=== PATIENT | female | born 1990 | race Caucasian/White ===

== ENCOUNTER 2019-05-27 08:25 | Inpatient (IN) | payer OTHER ==
[2019-05-27] MEDS ORDERED: BUTORPHANOL TARTRATE 1 MG/ML VIAL IVPB PRN (09:38)
[2019-05-27] MEDS ORDERED: OXYTOCIN 30 UNITS in 0.9% NS 30 UNIT/500 ML INFUS.BAG IVPB SCH (09:45)
[2019-05-27] MEDS ORDERED: ELECTROLYTE-148 SOLN 1,000 ML IV SCH (09:45)
--- NOTE | 2019-05-27 09:45 | HP ---
Past Medical History - Admission Chief Complaint: SROM 5:30 History of Present Illness: 28yo @ 41.0wks by SONIYA farooq 05/20/2019 here with SROM at 5:30AM. No ctx. +FM. No VB PNC @ [address]; transfer of care at 36 weeks Preg c/b: elevated GTT, normal 3hr GTT History Source: Patient Limitations to Obtaining History: Language Barrier - Past Medical History MANAGER OF OPERATIONS: No: Alzheimer's, CVA, Dementia, Migraine, Multiple Sclerosis, Peripheral Neuropathy, Parkinson's, Seizure, Syncope, TIA, Vertigo, Other Cardiovascular: No: AFIB, Aneurysm, Aortic Insufficiency, Aortic Stenosis, CAD, CHF, Deep Vein Thrombosis, HTN, Hyperlipdemia, NE, Mitral Insufficiency, Mitral Stenosis, Murmur, Pulmonary Hypertension, Other Pulmonary: No: Asthma, Bronchitis, Cancer, COPD, O2 Dependent, Pneumonia, Previously Intubated, Pulmonary Embolus, Pulmonary Fibrosis, Sleep Apnea, Other Hepatobiliary: No: Cirrhosis, Cholelithiasis, Cholecystitis, Choledocholithiasis , Hepatitis A, Hepatitis B, Hepatitis C, Other Renal/: No: Renal Failure, Renal Inusuff, BPH, Cancer, Hematuria, Hemodialysis , Neurogenic Bladder, Renal Calculi, UTI, Other Reproductive: No: Ectopic , Endometriosis, Fibroids, PID, Polycystic Ovary Syndrome, Postmenopausal, Other ...: 2 ...Para: 0 ...Term: 0 ...: 0 ...Spon : 1 ... Weeks Gestation by Dates: 41.0 ...EDC by Jamari: 05/20/19 Heme/Onc: No: Anemia, B12 Deficiency, Bleeding Disorder, Cancer, Current Chemotherapy, Current Radiation Therapy, Hemochromatosis, Hypercoaguable State, Myeloproliferative Synd, Sickle Cell Disease, Sickle Cell Trait, Thrombocytopenia, Other Infectious Disease: No: AIDS, C-Diff, Herpes Zoster, HIV, MRSA, STD's, Tuberculosis, VREF, Other Psych: No: Addictions, Anxiety, Bipolar, Depression, Panic, Psychosis, Schizophrenia, Other Musculoskeletal: No: Bursitis, Chronic low back pain, Hemiparesis, Hemiplegia, Osteoarthritis, Paraplegia, Other Rheumatology: No: Fibromyalgia, Gout, Lupus, Rheumatoid Arthritis, Sarcoidosis, Vasculitis, Other ENT: No: Allergic Rhinitis, Sinusitis, Other Endocrine: No: Pelon's Disease, [place]'s Disease, Diabetes Insipidus, Diabetes Mellitus, Hyperparathyroidism, Hyperthyroidism, Hypothyroidism, Osteopenia, SIADH, Other - Past Surgical History Past Surgical History: Yes: None Hx Myomectomy: No Hx Transabdominal Cerclage: No - Alcohol/Substance Use Hx Alcohol Use: No History of Substance Use: reports: None - Social History Usual Living Arrangement: Yes: With Significant Other Do you think of yourself as: Straight/Heterosexual ADL: Independent Home Medications - Allergies Allergies/Adverse Reactions: Allergies Allergy/AdvReac Type Severity Reaction Status Date / Time aspirin Allergy Intermediate Swelling Verified 05/27/19 09:34 ibuprofen Allergy Intermediate Swelling Verified 05/27/19 09:34 - Home Medications Home Medications: Ambulatory Orders Pnv No.95/Ferrous Fum/Folic AC [ Vitamin Tablet] 1 each PO DAILY Physical Exam - Maternity - Abdominal Exam/OB Number of Fetuses: Single Presentation: Vertex Contractions: Yes Regularity: Irregular Intensity: Unaware Monitor Mode: External Heart Rate Location: [facility] Category: I Accelerations: Non-Uniform Decelerations: None - Vaginal Exam/OB Vaginal Bleediing: No Speculum Exam: No Dilatation (cm): 1 Effacement (%): 0 Amniotic Membrane Status: Ruptured Nitrazine Test: Positive Amniotic Fluid: Yes: Clear Presentation: Vertex/Position Station: -3 - Physical Exam Edema: No Problem List - Problems (1) PROM (premature rupture of membranes) Code(s): O42.90 - LYLA ROM, 7TH0 BETW RUPT & ONST LABR, UNSP WEEKS OF GEST Assessment/Plan 28yo @ 41.0wks here with PROM Admit to L&D IVFs, clear fluids Pitocin IOL Cat I tracing Stadol/epidural prn Anticipate eventual Keyonna Carias MD
[2019-05-27 10:04] VITALS: BMI 27.1
[2019-05-27] MEDS ORDERED: PROMETHAZINE HCL 25 MG/1 ML VIAL ONE (10:13)
[2019-05-27 10:43] LABS: BASO % 0.6 % (0-2.0); EOS % 0.4 % (0-4.5); HEMATOCRIT 36.3 % (32.4-45.2); HEMOGLOBIN 12.2 GM/dL (10.7-15.3); MCH 30.7 pg (25.7-33.7); MCHC 33.5 g/dl (32.0-36.0); MEAN CELL VOLUME 91.9 fl (80-96); MEAN PLT VOLUME 11.5 fl (7.5-11.1); MONO % 6.1 % (3.8-10.2); NEUT % 69.9 % (42.8-82.8); PLATELET COUNT 136 K/MM3 (134-434); RBC 3.95 M/mm3 (3.60-5.2); RDW 14.9 % (11.6-15.6); WHITE BLOOD COUNT 11.5 K/mm3 (4.0-10.0)
[2019-05-27 10:56] LABS: INR 0.9 (0.83-1.09); PROTHROMBIN TIME (PATIENT) 10.6 SEC (9.7-13.0)
[2019-05-27 10:59] LABS: ACTIVATED PTT 30.3 SECONDS (25.2-36.5)
[2019-05-27 11:06] LABS: BLOOD UREA NITROGEN 9.4 mg/dL (7-18); CALCIUM 8.8 mg/dL (8.5-10.1); CREATININE 0.6 mg/dL (0.55-1.3); POTASSIUM 4.7 mmol/L (3.5-5.1)
--- NOTE | 2019-05-27 13:41 | PN ---
Progress Note, Labor Vaginal Exam #2 Labor Exam Date: 05/27/19 Labor Exam Time: 13:38 Heart Rate (range): Cat I Dilatation: 1 Effacement (%): 0 Amniotic Membrane Status: Ruptured Presentation: Vertex/Position Station: -3 Remarks: Pt comfortable head not well appreciated, bedside sono confirms vertex. Full bladder Will continue pitocin, if no cervical change in 12 hours, patient wants to proceed with PLTCS Will cont to pitocin Epidural prn Keyonna Carias MD
[2019-05-27] MEDS ORDERED: CITRIC ACID/SODIUM CITRATE 30 ML UNIT-DOSE CUP PO ONE (15:15)
--- NOTE | 2019-05-27 15:15 | PN ---
Progress Note, Labor Vaginal Exam #2 Labor Exam Date: 05/27/19 Labor Exam Time: 15:14 Heart Rate (range): Cat I Dilatation: 1 Effacement (%): 0 Amniotic Membrane Status: Ruptured Presentation: Vertex/Position Station: -3 Remarks: Pt uncomfortable Discussed epidural for pain and is requesting an elective PLTCS Declined epidural and reassessment after epidural Will discontinue pitocin and proceed with elective PLTCS per pt request and refusal to continue with IOL
[2019-05-27] MEDS ORDERED: OXYTOCIN 20 UNITS in 0.9% NS 20 UNIT/1,000 ML INFUS.BAG IV ONE (15:38)
[2019-05-27] MEDS ORDERED: morphine SULFATE/PF 0.5 MG/ML (2cc Syringe - QUVA) ONE (15:40)
[2019-05-27] MEDS ORDERED: PHENYLEPHRINE HCL 10 MG/1 ML SINGLE DOSE VIAL ONE (16:01)
[2019-05-27] MEDS ORDERED: MIDAZOLAM HCL 2 MG/2 ML SINGLE DOSE VIAL ONE (16:29)
[2019-05-27] MEDS ORDERED: ONDANSETRON 4 MG/2 ML VIAL IVPUSH PRN (16:40)
[2019-05-27] MEDS ORDERED: oxyCODONE HCL 5 MG TABLET PO PRN (16:57)
[2019-05-27] MEDS ORDERED: METHYLERGONOVINE MALEATE 0.2 MG/1 ML AMP IM PRN ×2 (16:57→17:13)
[2019-05-27] MEDS ORDERED: IBUPROFEN 600 MG TABLET (FP) PO PRN (16:57)
[2019-05-27] MEDS ORDERED: BENZOCAINE 20% 57 GM BOTTLE TP PRN (16:57)
[2019-05-27] MEDS ORDERED: BENZOCAINE 28 GM HEMORRHOIDAL OINTMENT TP PRN (16:57)
[2019-05-27] MEDS ORDERED: SIMETHICONE 80 MG TAB.CHEW (FP) PO PRN (16:57)
[2019-05-27] MEDS ORDERED: WITCH HAZEL 50% (TUCKS) 40 PAD/JAR PAD TP PRN (16:57)
[2019-05-27] MEDS ORDERED: IBUPROFEN 800 MG/8 ML IJ IVPB PRN (16:57)
[2019-05-27] MEDS ORDERED: ACETAMINOPHEN 325 MG TABLET (FP) PO PRN (16:57)
--- NOTE | 2019-05-27 16:57 | OP ---
Operative Note - Note: Operative Date: 05/27/19 Pre-Operative Diagnosis: 41 week , PPROM, desires elective PLTCS Operation: Primary Low Transverse Findings: VMI, ALEXIS position, nuchal and body cord, no meconium. Apgars 9/9, Weight 8.4lbs , Normal tubes and ovaries bilaterally Post-Operative Diagnosis: Same as Pre-op Surgeon: Anastasia Carias Brazing Machine Feeder: Derek Palacios Anesthesia: Spinal Estimated Blood Loss (mls): 500 Drains, Volume Out (mls): 300 (clear urine) Operative Report Dictated: Yes
[2019-05-27] MEDS ORDERED: OXYTOCIN 20 UNITS in 0.9% NS 20 UNIT/1,000 ML INFUS.BAG IV SCH (17:00)
[2019-05-27] MEDS ORDERED: SENNOSIDES/DOCUSATE COMBO (SENNA PLUS) TABLET (UD) PO PRN (17:13)
[2019-05-27] MEDS ORDERED: ACETAMINOPHEN 1000 MG/100 ML VIAL (NON FORMULARY) IVPB PRN (17:29)
[2019-05-27] MEDS ORDERED: ACETAMINOPHEN INJECTION 100 ML IVPB ONE (17:33)
[2019-05-27] MEDS: OXYTOCIN 20 UNITS in 0.9% NS 20 UNIT/1,000 ML INFUS.BAG IV SCH ×2 (17:40→23:41)
--- NOTE | 2019-05-27 17:52 | OP ---
DATE OF OPERATION: 05/27/2019 PREOPERATIVE DIAGNOSIS: A 41-week , premature rupture of membranes, desires elective primary section. POSTOPERATIVE DIAGNOSIS: A 41-week , premature rupture of membranes, desires elective primary section. PROCEDURE: Primary low transverse section. ANESTHESIA: Spinal. INTRAVENOUS FLUIDS: 1500. ESTIMATED BLOOD LOSS: 500. URINE OUTPUT: 300 mL of clear urine at the end of the procedure. FINDINGS: Viable male infant, ALEXIS position. Nuchal and body cord x1. No meconium. Weight 8 pounds 4 ounces. Apgars 9, 9. Normal tubes and ovaries bilaterally. SURGEON: Anastasia Carias MD OPERATIONS EXPERT: IRENE Francis COMPLICATIONS: None. CONDITION: Stable to recovery room. NATURE OF THE PROCEDURE: After the appropriate consents were signed, patient was taken to the operating room. Spinal anesthesia was administered. Lewis catheter was then inserted prior to entry into the operating room. The abdomen was prepped and draped in a normal sterile fashion. A time-out was performed confirming correct patient and procedure. Anesthesia was confirmed. A Pfannenstiel incision was made through the skin, carried through to the underlying layer until the fascia was nicked in the midline. The fascia was then extended laterally with the Brooks scissors. The inferior aspect of the fascia was grasped with the Asmita clamps, tented upwards, and the rectus muscle was dissected off bluntly and with the Brooks scissors. Attention was then paid to the superior aspect, which was taken down in a similar fashion. The rectus muscles were bluntly in the midline. The peritoneum was entered bluntly. A bladder blade was then inserted. The bladder reflection was then made once the uterine serosa was nicked in the midline, extended laterally with the Metzenbaum scissors. The bladder flap was then created digitally. The bladder blade was then re-inserted. The uterus was incised in a low transverse fashion. Clear amniotic fluid was noted. Infant's head was delivered without difficulty as were the remaining shoulder and body. The nuchal and body cord were reduced upon delivery of the infant. The cord was clamped and cut. The was handed off to the awaiting pediatric staff. The placenta was then removed manually. The uterus was cleared of all clot and debris. The hysterotomy was closed in a single layer with a 1-0 Vicryl and noted to be hemostatic. The adnexa were inspected and noted to be normal. The gutters were cleared of all clot and debris. The hysterotomy was re-examined, noted to be normal. The rectus muscles were then reapproximated with a 2-0 chromic. The fascia was closed with a 0 Vicryl. The skin was closed with a 3-0 Biosyn. Bandages were placed. All sponge, lap, needle counts were correct x3. The patient did receive Ancef at the start of the procedure. She was taken from the operating room to the recovery area in stable condition. MD SASKIA FAIR/[id number]
[2019-05-27] MEDS ORDERED: oxyCODONE HCL 5 MG TABLET ONE (18:25)
[2019-05-27] MEDS: oxyCODONE HCL 5 MG TABLET PO PRN (18:27)
[2019-05-27] MEDS ORDERED: FERROUS SO4 325 MG TABLET (FP) PO SCH (22:00)
[2019-05-27] MEDS: FERROUS SO4 325 MG TABLET (FP) PO SCH (22:26)
[2019-05-28] MEDS: OXYTOCIN 20 UNITS in 0.9% NS 20 UNIT/1,000 ML INFUS.BAG IV SCH (06:07)
[2019-05-28 09:16] LABS: BASO % 0.7 % (0-2.0); EOS % 0.3 % (0-4.5); HEMATOCRIT 29.4 % (32.4-45.2); HEMOGLOBIN 9.9 GM/dL (10.7-15.3); LYMPH % 14.3 % (8-40); MCH 31.1 pg (25.7-33.7); MCHC 33.7 g/dl (32.0-36.0); MEAN CELL VOLUME 92.4 fl (80-96); MEAN PLT VOLUME 11.5 fl (7.5-11.1); NEUT % 79.7 % (42.8-82.8); PLATELET COUNT 92 K/MM3 (134-434); RBC 3.18 M/mm3 (3.60-5.2); RDW 14.6 % (11.6-15.6); WHITE BLOOD COUNT 12.2 K/mm3 (4.0-10.0)
[2019-05-28] MEDS ORDERED: PRENATAL VITAMINS W/ FOLIC ACID TABLET (FP) PO SCH (10:00)
[2019-05-28] MEDS: PRENATAL VITAMINS W/ FOLIC ACID TABLET (FP) PO SCH (10:44)
[2019-05-28] MEDS: FERROUS SO4 325 MG TABLET (FP) PO SCH ×2 (10:44→22:05)
--- NOTE | 2019-05-28 14:13 | PN ---
Post Progress Note - Subjective Subjective: Pain moderately controlled. Little ambulation. No fevers/chills. Type of Delivery: Primary C/S Vital Signs: Vital Signs Temperature 98.4 F 05/28/19 10:00 Pulse Rate 84 05/28/19 10:00 Respiratory Rate 18 05/28/19 13:00 Blood Pressure 127/79 05/28/19 10:00 O2 Sat by Pulse Oximetry (%) 99 05/27/19 17:45 Breast Exam: Yes: Soft Uterus: Yes: Fundus below umbilicus Incision: Yes: Dressing dry and intact, Sutures intact Abdomen/GI: Yes: Abdomen soft Lochia: Yes: Rubra Lochia, amount: Small Extremities: Yes: Calves non-tender Perineum: Yes: Intact Activity: Ambulating - Labs Labs: CBC WBC 12.2 K/mm3 (4.0-10.0) H 05/28/19 08:28 RBC 3.18 M/mm3 (3.60-5.2) L 05/28/19 08:28 Hgb 9.9 GM/dL (10.7-15.3) L 05/28/19 08:28 Hct 29.4 % (32.4-45.2) L D 05/28/19 08:28 MCV 92.4 fl (80-96) 05/28/19 08:28 MCH 31.1 pg (25.7-33.7) 05/28/19 08:28 MCHC 33.7 g/dl (32.0-36.0) 05/28/19 08:28 RDW 14.6 % (11.6-15.6) 05/28/19 08:28 Plt Count 92 K/MM3 (134-434) L D 05/28/19 08:28 MPV 11.5 fl (7.5-11.1) H 05/28/19 08:28 Absolute Neuts (auto) 9.7 K/mm3 (1.5-8.0) H 05/28/19 08:28 Neutrophils % 79.7 % (42.8-82.8) 05/28/19 08:28 Lymphocytes % 14.3 % (8-40) D 05/28/19 08:28 Monocytes % 5.0 % (3.8-10.2) 05/28/19 08:28 Eosinophils % 0.3 % (0-4.5) 05/28/19 08:28 Basophils % 0.7 % (0-2.0) 05/28/19 08:28 Nucleated RBC % 0 % (0-0) 05/28/19 08:28 Problem List - Problems (1) PROM (premature rupture of membranes) Code(s): O42.90 - LYLA ROM, 7TH0 BETW RUPT & ONST LABR, UNSP WEEKS OF GEST Assessment/Plan 28yo s/p elective PLTCS, POD#1 Routine PP care Labs reviewed, normal PO pain control OOB, ambulate D/C to home by POD#4 Keyonna Carias MD
[2019-05-28] MEDS ORDERED: BISACODYL 10 MG SUPP.RECT RC PRN ×2 (16:57→17:13)
[2019-05-28] MEDS: ACETAMINOPHEN 325 MG TABLET (FP) PO PRN (19:28)
[2019-05-29] MEDS: SIMETHICONE 80 MG TAB.CHEW (FP) PO PRN ×4 (08:33→22:28)
[2019-05-29] MEDS: ACETAMINOPHEN 325 MG TABLET (FP) PO PRN ×4 (08:33→22:29)
[2019-05-29] MEDS: oxyCODONE HCL 5 MG TABLET PO PRN ×4 (08:34→22:29)
--- NOTE | 2019-05-29 09:09 | PN ---
Post Progress Note - Subjective Subjective: Pain controlled. No fevers/chills. Ambulating. Passing flatus. Tolerating po Type of Delivery: Primary C/S Vital Signs: Vital Signs Temperature 98.0 F 05/28/19 22:00 Pulse Rate 90 05/28/19 22:00 Respiratory Rate 20 05/28/19 22:00 Blood Pressure 133/77 05/28/19 22:00 O2 Sat by Pulse Oximetry (%) 99 05/27/19 17:45 Breast Exam: Yes: Soft Uterus: Yes: Fundus Firm, Fundus below umbilicus Incision: Yes: Dressing dry and intact Lochia: Yes: Rubra Lochia, amount: Small Extremities: Yes: Calves non-tender Perineum: Yes: Intact Activity: Ambulating - Labs Labs: CBC WBC 12.2 K/mm3 (4.0-10.0) H 05/28/19 08:28 RBC 3.18 M/mm3 (3.60-5.2) L 05/28/19 08:28 Hgb 9.9 GM/dL (10.7-15.3) L 05/28/19 08:28 Hct 29.4 % (32.4-45.2) L D 05/28/19 08:28 MCV 92.4 fl (80-96) 05/28/19 08:28 MCH 31.1 pg (25.7-33.7) 05/28/19 08:28 MCHC 33.7 g/dl (32.0-36.0) 05/28/19 08:28 RDW 14.6 % (11.6-15.6) 05/28/19 08:28 Plt Count 92 K/MM3 (134-434) L D 05/28/19 08:28 MPV 11.5 fl (7.5-11.1) H 05/28/19 08:28 Absolute Neuts (auto) 9.7 K/mm3 (1.5-8.0) H 05/28/19 08:28 Neutrophils % 79.7 % (42.8-82.8) 05/28/19 08:28 Lymphocytes % 14.3 % (8-40) D 05/28/19 08:28 Monocytes % 5.0 % (3.8-10.2) 05/28/19 08:28 Eosinophils % 0.3 % (0-4.5) 05/28/19 08:28 Basophils % 0.7 % (0-2.0) 05/28/19 08:28 Nucleated RBC % 0 % (0-0) 05/28/19 08:28 Problem List - Problems (1) PROM (premature rupture of membranes) Code(s): O42.90 - LYLA ROM, 7TH0 BETW RUPT & ONST LABR, UNSP WEEKS OF GEST Assessment/Plan 28yo s/p elective PLTCS, POD#2 Routine PP care Labs reviewed, normal; plts 92 PO pain control OOB, ambulate D/C to home by POD#4 Keyonna Carias MD
[2019-05-29] MEDS: FERROUS SO4 325 MG TABLET (FP) PO SCH ×2 (10:02→23:04)
[2019-05-29] MEDS: PRENATAL VITAMINS W/ FOLIC ACID TABLET (FP) PO SCH (10:02)
[2019-05-29 22:24] VITALS: PULSE 99
[2019-05-30] MEDS: OXYTOCIN 20 UNITS in 0.9% NS 20 UNIT/1,000 ML INFUS.BAG IV SCH (08:31)
[2019-05-30] MEDS: oxyCODONE HCL 5 MG TABLET PO PRN (08:32)
[2019-05-30] MEDS: SIMETHICONE 80 MG TAB.CHEW (FP) PO PRN (08:32)
[2019-05-30] MEDS: ACETAMINOPHEN 325 MG TABLET (FP) PO PRN (08:33)
[2019-05-30 08:44] LABS: BASO % 0.6 % (0-2.0); EOS % 1.3 % (0-4.5); HEMATOCRIT 27.1 % (32.4-45.2); HEMOGLOBIN 9.1 GM/dL (10.7-15.3); LYMPH % 13.6 % (8-40); MCH 30.9 pg (25.7-33.7); MCHC 33.7 g/dl (32.0-36.0); MEAN CELL VOLUME 91.7 fl (80-96); MEAN PLT VOLUME 11.4 fl (7.5-11.1); MONO % 4.9 % (3.8-10.2); NEUT % 79.6 % (42.8-82.8); PLATELET COUNT 156 K/MM3 (134-434); RBC 2.95 M/mm3 (3.60-5.2); RDW 14.8 % (11.6-15.6); WHITE BLOOD COUNT 13.5 K/mm3 (4.0-10.0)
[2019-05-30 09:53] LABS: POC NITRAZINE POS
[2019-05-30] MEDS: PRENATAL VITAMINS W/ FOLIC ACID TABLET (FP) PO SCH (10:05)
[2019-05-30] MEDS: FERROUS SO4 325 MG TABLET (FP) PO SCH (10:05)
[2019-05-30 10:35] VITALS: BP 129/84; TEMP 98.4
--- NOTE | 2019-05-30 11:48 | DS ---
Physical Examination Vital Signs: Vital Signs Temperature 98.4 F 05/30/19 10:00 Pulse Rate 99 H 05/30/19 10:00 Respiratory Rate 18 05/30/19 10:00 Blood Pressure 129/84 05/30/19 10:00 O2 Sat by Pulse Oximetry (%) 99 05/27/19 17:45 Constitutional: Yes: Well Nourished, No Distress, Calm Eyes: Yes: WNL, Conjunctiva Clear, EOM Intact HENT: Yes: WNL, Atraumatic, Normocephalic Neck: Yes: WNL, Supple, Trachea Midline Cardiovascular: Yes: WNL, Regular Rate and Rhythm Respiratory: Yes: WNL, Regular, CTA Bilaterally Gastrointestinal: Yes: WNL, Normal Bowel Sounds Musculoskeletal: Yes: WNL Extremities: Yes: WNL Edema: No Integumentary: Yes: WNL Neurological: Yes: WNL, Alert, Oriented ...Motor Strength: WNL Psychiatric: Yes: WNL Labs: CBC, BMP 05/30/19 07:18 05/27/19 10:10 Discharge Summary Problems reviewed: Yes Reason For Visit: LABOR ADMISSION Current Active Problems PROM (premature rupture of membranes) (Acute) Procedures: Principal: Elective PLTCS Hospital Course: Patient presented at 41weeks with PROM She underwent under 12 hours of pitocin IOL, but then declined to continue further and asked for an elective C/S She had an uncomplicated procedure She met all postoperative milestones She was discharged home on POD#3 Condition: Stable - Instructions Diet, Activity, Other Instructions: Regular Diet Follow up in one week for an incision check Referrals: Anastasia Carias MD [Staff Physician] - Disposition: HOME - Home Medications Comprehensive Discharge Medication List: Ambulatory Orders Pnv No.95/Ferrous Fum/Folic AC [ Vitamin Tablet] 1 each PO DAILY Oxycodone HCl 5 mg PO QID PRN #25 tablet MDD 4 05/30/19
--- NOTE | 2019-06-01 17:09 | PATH ---
Surgical Pathology Report Patient Name: KERA RODRIGUEZ Med. Rec. #: [id number] /Age/Gender: 1990 (Age: 28) / F Account: [id number] Location: [facility] OBS/ARCHIVES SPECIALIST Taken: 05/27/2019 Received: 05/30/2019 Reported: 06/01/2019 Physicians: Anastasia Carias Specimen(s) Received PLACENTA Clinical History , 41 weeks SAPB X1 2009, high 1 hour GCT, 3 hour GTT WNL Final Diagnosis PLACENTA, SECTION: 526 G THIRD TRIMESTER PLACENTA WITH TRIVASCULAR UMBILICAL CORD AND PLACENTAL MEMBRANES WITH ISOLATED MECONIUM LADEN MACROPHAGES. Electronically Signed By Simran Weber M.D. Gross Description The specimen is received fresh labeled placenta and is a 526 gram, 21.0 x 18.0 x 1.9 cm. placenta with attached membranes and umbilical cord. The attached membranes are james, translucent with focal opacities and insert marginally. The umbilical cord measures 53 cm. in length and averages 0.9 cm. in diameter. The cord inserts centrally. No true knots or strictures are identified. Cut surface of the umbilical cord reveals 3 vessels. The surface is grissom-blue with minimal fibrin deposition and appropriate caliber vessels. The maternal surface is red-brown with focal defects. Sectioning reveals red-brown, spongy parenchyma. No lesions are identified. Securities Sales Associate sections are submitted in three cassettes as follows: 1- membrane rolls and umbilical cord; 2-3- full thickness sections of placenta. /05/30/2019 [facility]05/30/2019
== END 2019-05-30 14:10 | disposition home or self-care (01) | DRG 788 ==
LOC: JLDR 08:25 → J3W 19:27
PROVIDERS: ADMIT Obstetrics & Gynecology; ATTEND Obstetrics & Gynecology
PROC: 10D00Z1 Extraction of Products of Conception, Low, Open Approach (ICD-10-PCS; principal; 2019-05-27)
DX: O42.92 Full-term premature rupture of membranes, unspecified as to length of time between rupture and onset of labor (principal); O69.81X0 Labor and delivery complicated by cord around neck, without compression, not applicable or unspecified; Z3A.41 41 weeks gestation of pregnancy; Z37.0 Single live birth
CPT/HCPCS: 36415; 80048; 83986-QW; 85025; 85610; 85730; 86593; 86850; 86900; 86901; 88307-TC; J0131